=== PATIENT | female | born 1955 | race Caucasian/White ===

== ENCOUNTER 2017-12-24 19:59 | Emergency (ER) | payer OTHER ==
--- NOTE | 2017-12-24 20:56 | UC ---
General HPI - HPI Summary HPI Summary: 62 yo female c/o itching and rash arms, torso, upper back, neck face. Worked in garden on Tuesday, then Tuesday noted rash. Thinks d/t poison iveth. Hx poison iveth allergy in the past. No fever / chills. No sob / cp. No difficulty breathing. Placed bandaids over the open draining wounds, d/t large family gathering. Hx RA, takes MTX. Not currently or recently prednisone or similar, but has in the past. - History of Current Complaint Stated Complaint: SKIN RASH Time Seen by Provider: 12/24/17 20:45 Hx Obtained From: Patient - Allergy/Home Medications Allergies/Adverse Reactions: Allergies Allergy/AdvReac Type Severity Reaction Status Date / Time hydroxychloroquine Allergy Itching Verified 12/24/17 20:45 [From Plaquenil] Home Medications: Home Medications Ascorbic Acid TAB* [Vitamin C TAB*] 500 mg PO DAILY 12/24/17 [History Confirmed 12/24/17] Cholecalciferol TAB* [Vitamin D TAB*] 1,000 unit PO DAILY 12/24/17 [History Confirmed 12/24/17] Conjugated Estrogens VAG CM* [Premarin VAG CREAM*] 0.5 applic VAGINAL .SEE DIRECTIONS 12/24/17 [History Confirmed 12/24/17] Ferrous Sulfate TAB* 325 mg PO DAILY 12/24/17 [History Confirmed 12/24/17] Magnesium Oxide [Magnesium] 500 mg PO DAILY 12/24/17 [History Confirmed 12/24/17 ] Methotrexate TAB* 10 mg PO WEEKLY 12/24/17 [History Confirmed 12/24/17] Multivitamin [Multivitamins] 1 cap PO DAILY 12/24/17 [History Confirmed 12/24/17 ] Pilocarpine HCl [Pilocarpine Hydrochloride] 5 mg PO DAILY 12/24/17 [History Confirmed 12/24/17] Vitamin E CAP* 400 unit PO DAILY 12/24/17 [History Confirmed 12/24/17] diPHENhydraMINE PO* [Benadryl PO 25 MG TAB*] 50 mg PO Q6H PRN 12/24/17 [History Confirmed 12/24/17] diphenhydrAMINE HCl [Benadryl Itch Stopping 2% GEL] 2 % EX DAILY PRN 12/24/17 [ History Confirmed 12/24/17] hydrOXYzine HCL TAB* [Atarax 25 MG TAB*] 25 mg PO TID PRN 12/24/17 [History Confirmed 12/24/17] PMH/Surg Hx/FS Hx/Imm Hx Previously Healthy: No - rh arthritis o/w healthy Review of Systems Constitutional: Negative Skin: Other - see hpi Eyes: Negative ENT: Negative Respiratory: Negative Cardiovascular: Negative Gastrointestinal: Negative Genitourinary: Negative Motor: Negative Neurovascular: Negative Musculoskeletal: Negative Neurological: Negative Psychological: Negative Is Patient Immunocompromised?: No All Other Systems Reviewed And Are Negative: Yes Physical Exam Triage Information Reviewed: Yes Appearance: Thin, Other: - looks tired but NAD Vital Signs Reviewed: Yes Eye Exam: Normal - grossly normal ENT Exam: Normal ENT: Positive: Normal ENT inspection, Pharynx normal, Other - no stridor Neck exam: Normal Neck: Positive: Supple, Nontender Respiratory Exam: Normal Respiratory: Positive: Chest non-tender, Lungs clear, Normal breath sounds, No respiratory distress Cardiovascular Exam: Normal Cardiovascular: Positive: RRR, No Murmur, Pulses Normal, Brisk Capillary Refill Abdominal Exam: Normal Abdomen Description: Positive: Nontender Musculoskeletal Exam: Normal Musculoskeletal: Positive: Strength Intact Neurological Exam: Normal - grossly nonfocal Psychological Exam: Normal Skin Exam: Other - non-diaphoretic. Multiple lesions, blisters c/w contact dermatitis (likely poison iveth) scattered over hands lower abd, neck, upper neck , face. No felix evidence infection (ex concomitant cellulitis) or purulence at this time. Course/Dx - Course Course Of Treatment: Ms. Roberts is new to the area, referral [facility] referral system. Reviewed need to seek medical attention worse or new problems. Reviewed coa / tx plan with Ms. Roberts and daughter. Questions as posed answered to the best of my ability. - Differential Dx - Multi-Symptom Provider Diagnoses: Severe poison iveth Discharge - Sign-Out/Discharge Documenting (check all that apply): Discharge/Admit/Transfer - Discharge Plan Condition: Stable Disposition: HOME Prescriptions: Famotidine TAB* [Pepcid 20 MG TAB*] 20 mg PO DAILY PRN #20 tab PRN Reason: Allergy Symptoms predniSONE TAB* [Deltasone 10 MG TAB*] 10 mg PO DAILY #24 tab Patient Education Materials: Poison Iveth (ED) Referrals: [facility] PHYSICIAN REFERRAL [Outside] No Primary Care Phys,NOPCP [Primary Care Provider] - Additional Instructions: Follow up with primary care physician as soon as you are able, in the the next 2 weeks if possible. Please seek medical attention for worse or new problems. Hypoallergenic laundry soap. Double rinse clothes. Avoid astringents as much as possible. Loose clothing, avoid prolonged direct sun exposure. Drink plenty of water. - Billing Disposition and Condition Condition: STABLE Disposition: HOME
[2017-12-24 21:03] VITALS: BP 133/78
[2017-12-24] MEDS ORDERED: predniSONE TAB* 20 MG PO ONE (21:23)
[2017-12-24] MEDS ORDERED: methylPREDNISolone 125 MG* 2 ML VIAL IV ONE (21:23)
[2017-12-24] MEDS ORDERED: Famotidine TAB* 20 MG PO ONE (21:32)
== END 2017-12-24 21:53 | disposition home or self-care (01) ==
LOC: UCCORT 19:59
DX: L23.7 Allergic contact dermatitis due to plants, except food (principal); Z88.1 Allergy status to other antibiotic agents
CPT/HCPCS: 96372; 99202; A9270-GY; G0463; J2930; J7512

== ENCOUNTER 2018-05-12 07:13 | Emergency (ER) | payer OTHER ==
[2018-05-12 07:41] VITALS: BP 121/63
--- NOTE | 2018-05-12 08:30 | RAD ---
INDICATION: Right foot injury. TECHNIQUE: 3 views of the right foot were obtained. FINDINGS: The bones are normal alignment. There is lateral soft tissue swelling. There is a small slightly irregular bony density present adjacent to the lateral aspect of the cuboid bone measuring 5 x 2 mm suggestive of an avulsion fracture fragment agents indeterminate. Joint spaces appear maintained. IMPRESSION: FINDINGS SUGGESTIVE OF A SMALL AVULSION FRACTURE FRAGMENT ARISING FROM THE LATERAL ASPECT OF THE CUBOID BONE, AGE INDETERMINATE.
--- NOTE | 2018-05-12 08:55 | ED ---
Lower Extremity - HPI Summary HPI Summary: 63 yr old who was walking in the dark at a client's home and stepped in a rut and twisted her right foot. Pain is moderate, lateral foot, worse with weight bearing. She has no other complaint. The injury occurred three days ago. She has been walking but with pain. - History of Current Complaint Chief Complaint: UCLowerExtremity Stated Complaint: RIGHT FOOT COMPLAINT Time Seen by Provider: 05/12/18 07:33 Pain Intensity: 10 - Allergies/Home Medications Allergies/Adverse Reactions: Allergies Allergy/AdvReac Type Severity Reaction Status Date / Time hydroxychloroquine Allergy Itching Verified 05/12/18 07:35 [From Plaquenil] Home Medications: Home Medications Bone Renewal Supplement 2 - 3 cap PO BID AC 05/12/18 [History Confirmed 05/12/18 ] Docosahexanoic Acid [Dha [place] 3] 100 mg PO BID 05/12/18 [History Confirmed ] Ranitidine TAB (NF) [Zantac TAB (NF)] 75 mg PO DAILY PRN 05/12/18 [History Confirmed 05/12/18] PMH/Surg Hx/FS Hx/Imm Hx - Surgical History Surgery Procedure, Year, and Place: Back Sx. Hysterectomy. Bladder tuck. Herniated Bowel Repair. Repair of torn retina Infectious Disease History: No Infectious Disease History: Denies: Traveled Outside the [place] in Last 30 Days - Family History Known Family History: Positive: None - Social History Alcohol Use: None Substance Use Type: Reports: None Smoking Status (MU): Never Smoked Tobacco Review of Systems Constitutional: Negative Positive: Other - lateral right foot pain All Other Systems Reviewed And Are Negative: Yes Physical Exam Triage Information Reviewed: Yes Vital Signs On Initial Exam: Initial Vitals Temp Pulse Resp BP Pulse Ox 97.6 F 84 14 121/63 100 05/12/18 07:33 05/12/18 07:33 05/12/18 07:33 05/12/18 07:33 05/12/18 07:33 Vital Signs Reviewed: Yes Appearance: Positive: Well-Appearing, No Pain Distress Skin: Positive: Warm, Skin Color Reflects Adequate Perfusion Head/Face: Positive: Normal Head/Face Inspection Eyes: Positive: EOMI ENT: Positive: Normal ENT inspection Neck: Positive: Nontender Respiratory/Lung Sounds: Positive: Clear to Auscultation, Breath Sounds Present Cardiovascular: Positive: RRR. Negative: Murmur Abdomen Description: Positive: Nontender Musculoskeletal: Positive: Strength/ROM Intact, Other - pain with STS to the right lateral foot over the cuboid, base 5th metatarsal area. no pain to palpate right ankle, or knee, or tib fib. Neurological: Positive: Sensory/Motor Intact, Alert, Oriented to Person Place, Time, CN Intact II-III Psychiatric: Positive: Normal - [place] Coma Scale Best Eye Response: 4 - Spontaneous Best Motor Response: 6 - Obeys Commands Best Verbal Response: 5 - Oriented Coma Scale Total: 15 Diagnostics - Vital Signs Vital Signs Temp Pulse Resp BP Pulse Ox 05/12/18 07:33 97.6 F 84 14 121/63 100 - Laboratory Lab Statement: Any lab studies that have been ordered have been reviewed, and results considered in the medical decision making process. - Radiology right foot Xray Interpretation: Positive (See Comments) - cuboid avulsion fx Radiology Interpretation Completed By: Radiologist Lower Extremity Course/Dx - Course Course Of Treatment: 63 yr old with fx foot. Posterior splint applied and referral to orthopedic surgery. - Diagnoses Provider Diagnoses: Fracture of cuboid bone, closed, Avulsion fracture Discharge - Sign-Out/Discharge Documenting (check all that apply): Patient Departure All imaging exams completed and their final reports reviewed: Yes - Discharge Plan Condition: Good Disposition: HOME Patient Education Materials: Foot Fracture in Adults (ED) Referrals: No Primary Care Phys,NOPCP [Primary Care Provider] - Bob Duggan MD [Medical Doctor] - 1 Day - Billing Disposition and Condition Condition: GOOD Disposition: Home
== END 2018-05-12 09:18 | disposition home or self-care (01) ==
LOC: UCCORT 07:13
DX: S92.211A Displaced fracture of cuboid bone of right foot, initial encounter for closed fracture (principal); W17.2XXA Fall into hole, initial encounter; Y92.007 Garden or yard of unspecified non-institutional (private) residence as the place of occurrence of the external cause; Z88.8 Allergy status to other drugs, medicaments and biological substances
CPT/HCPCS: 99212; G0463

== ENCOUNTER → 2019-05-22 05:56 | Day surgery (SDC) | payer BC ==
[~2019-05-22 05:56] MED LIST: Buffered Lidocaine 1% SYRIN* 1 ML/SYRINGE INTRADERM ONE; Bupivacaine 0.25% SDV PF* 10 ML VIAL INJ ONE; Lactated Ringers 1000 ML Bag* 1,000 ML IV SCH; Lidocaine 1% w EPI 1:100,000* MDV 20 ML VIAL ONE; Lidocaine 2% PF * 5 ML VIAL ONE; Methylene Blue 0.5 %* 50 MG/10 ML AMP IV ONE; Midazolam* 1 MG/ML 5 ML VIAL (5 MG) ONE; Mineral Oil Sterile, TOPICAL* 25 ML BTL ONE; Naloxone* 0.4 MG/ML 1 ML VIAL IV PRN; Petrolatum 5 GM* 5 GM PACKET ONE; Propofol* 10 MG/ML 20 ML BTL ONE; ceFAZolin 2 GM in NS PREMIX(*) 2 GM/100 ML BAG IVPB ONE; fentaNYL* 50 MCG/ML 2 ML VIAL (100 MCG VIAL) ONE
[2019-05-22 10:43] VITALS: BP 107/68
== END | disposition home or self-care (01) ==
LOC: OR 05:56
PROVIDERS: ATTEND Plastic Surgery
DX: C44.01 Basal cell carcinoma of skin of lip (principal); M06.9 Rheumatoid arthritis, unspecified; M35.00 Sjogren syndrome, unspecified
CPT/HCPCS: 88305; 88331; 88332; A9270-GY; J0690; J2250; J2704; J3010; J3490